=== PATIENT | female | born 1965 | race Caucasian/White ===

== ENCOUNTER → 2020-03-04 | Outpatient (CLI) | payer BC | END | disposition home or self-care (01) | LOC: STAR 14:55 | PROVIDERS: ATTEND Anesthesiology | DX: Z20.828 Contact with and (suspected) exposure to other viral communicable diseases (principal) | CPT/HCPCS: 36415; 87635 ==

== ENCOUNTER 2020-03-08 11:29 | Day surgery (SDC) | payer BC ==
[~2020-03-08] VITALS: Ht 170.2 cm; Wt 85.7 kg
[~2020-03-08 11:29] MED LIST: CEFAZOLIN 1,000 MG ONE; PROPOFOL 10 MG/ML, 20ML ONE
[2020-03-08] MEDS ORDERED: LACTATED RINGERS 1,000 ML IV SCH (11:58)
[2020-03-08] MEDS ORDERED: CHLORHEXIDINE 15 ML UDC MM ONE (12:00)
[2020-03-08] MEDS ORDERED: SPIR50TA4 PO (12:03)
[2020-03-08] MEDS ORDERED: CELE200C PO (12:03)
[2020-03-08] MEDS ORDERED: CRESTOR PO (12:03)
[2020-03-08 12:29] VITALS: BP 95/65
[2020-03-08] MEDS ORDERED: PLEASE ENTER HEIGHT AND WEIGHT MC SCH (12:30)
[2020-03-08 12:43] LABS: ANION GAP 6 mmol/L (5-15); CALCIUM 9.5 mg/dL (8.5-10.1); CHLORIDE 109 mmol/L (98-107)
[2020-03-08 12:55] LABS: ALANINE AMINOTRANSFERASE 31 U/L (12-78); ALKALINE PHOSPHATASE 76 U/L (45-117); BILIRUBIN,TOTAL 0.6 mg/dL (0.2-1.0); CREATININE 0.86 mg/dL (0.55-1.02); TOTAL PROTEIN 8.2 g/dL (6.4-8.2)
[2020-03-08] MEDS ORDERED: BUPIVACAINE/PF 0.5% ONE (13:07)
[2020-03-08] MEDS ORDERED: MIDAZOLAM 1 MG/ML, 2ML ONE (13:29)
[2020-03-08] MEDS ORDERED: FENTANYL PF 100 MCG/2ML ONE (13:29)
[2020-03-08] MEDS ORDERED: ONDANSETRON 2MG/ML, 2ML IVPush PRN (13:30)
[2020-03-08] MEDS ORDERED: FENTANYL PF 100 MCG/2ML IV PRN (13:30)
[2020-03-08] MEDS ORDERED: LABETALOL 5MG/ML, 20ML IV PRN (13:30)
[2020-03-08] MEDS ORDERED: morphine SULFATE 10 MG/ML, 1ML IVPush PRN (13:30)
[2020-03-08] MEDS ORDERED: MEPERIDINE/PF 25MG/0.5ML IVPush PRN (13:30)
[2020-03-08] MEDS ORDERED: hydrALAzine 20 MG/ML, 1ML IV PRN (13:30)
[2020-03-08] MEDS ORDERED: ACETAMINOPHEN 325 MG TABLET PO PRN (13:30)
[2020-03-08] MEDS ORDERED: OXYcodone 5 MG/5 ML ORAL.SOL UDC PO PRN (13:30)
[2020-03-08] MEDS ORDERED: HYDROmorphone 1 MG/ML, 1ML INJ IVPush PRN (13:30)
[2020-03-08] MEDS ORDERED: BUPIVACAINE/PF-EPI 0.5% 1:200K INFIL ONE (13:47)
[2020-03-08] MEDS ORDERED: BACITRACIN OINT 500U/GM, 15 GM ONE (13:54)
== END 2020-03-08 14:45 | disposition home or self-care (01) ==
LOC: OUT 11:29
PROVIDERS: ATTEND Surgery
DX: D17.21 Benign lipomatous neoplasm of skin and subcutaneous tissue of right arm (principal); E78.5 Hyperlipidemia, unspecified; G47.30 Sleep apnea, unspecified; M19.90 Unspecified osteoarthritis, unspecified site; Z79.899 Other long term (current) drug therapy; Z98.890 Other specified postprocedural states
CPT/HCPCS: 24075; 36415; 80053; 88304; J0690; J2250; J2704; J3010; J7120; 88307